=== PATIENT | female | born 1980 | race Caucasian/White ===

== ENCOUNTER 2019-02-24 01:32 | Emergency (ER) | payer OTHER ==
[2019-02-24] MEDS ORDERED: predniSONE 20 MG TAB PO STA (02:00)
[2019-02-24] MEDS ORDERED: diphenhydrAMINE 50 MG CAP PO STA (02:00)
[2019-02-24] MEDS ORDERED: FAMOTIDINE 20 MG TAB PO STA (02:00)
--- NOTE | 2019-02-24 02:05 | ED ---
Allergic Reaction HPI - General Chief complaint: Allergic Reaction Stated complaint: Allergic reaction to medication Time Seen by Provider: 02/24/19 01:50 Source: patient Mode of arrival: ambulatory Limitations: no limitations - History of Present Illness MD Complaint: allergic reaction, hives -: hour(s) Exposure: medication Symptoms: rash, itching, hoarseness Severity: moderate Treatment Prior to Arrival: none Previous Allergy History: none - Related Data Home Medications Medication Instructions Recorded Confirmed Lisinopril [Prinivil] 20 mg PO DAILY 02/16/15 04/29/15 metFORMIN HCL [metFORMIN HCL ER] 1,000 mg PO BID 02/16/15 04/29/15 Aspirin EC [Ecotrin] 81 mg PO DAILY 04/29/15 04/29/15 Previous Rx's Medication Instructions Recorded Hydrochlorothiazide [Hydrodiuril] 12.5 mg PO DAILY #90 cap 02/16/15 Famotidine [Pepcid] 20 mg PO BID #14 tablet 02/24/19 Nitrofurantoin Monohyd/M-Cryst 100 mg PO Q12HR #6 cap 02/24/19 [Macrobid] predniSONE 20 mg PO BID #8 tab 02/24/19 Allergies Allergy/AdvReac Type Severity Reaction Status Date / Time No Known Allergies Allergy Verified 04/29/15 18:46 Review of Systems ROS Statement: Those systems with pertinent positive or pertinent negative responses have been documented in the HPI. ROS Other: All systems not noted in ROS Statement are negative. Constitutional: Denies: fever, chills Respiratory: Denies: cough, dyspnea, wheezes Cardiovascular: Denies: chest pain, palpitations Gastrointestinal: Denies: abdominal pain, nausea, vomiting, diarrhea Skin: Reports: rash Neurological: Denies: headache Past Medical History Past Medical History: Diabetes Mellitus, Hypertension History of Any Multi-Drug Resistant Organisms: None Reported Past Surgical History: No Surgical Hx Reported Past Psychological History: No Psychological Hx Reported Smoking Status: Never smoker Past Alcohol Use History: Occasional Past Drug Use History: None Reported General Exam Limitations: no limitations General appearance: alert, in no apparent distress Head exam: Present: atraumatic, normocephalic Eye exam: Present: normal appearance, PERRL, EOMI. Absent: scleral icterus, conjunctival injection ENT exam: Present: normal oropharynx Neck exam: Present: normal inspection Respiratory exam: Present: normal lung sounds bilaterally. Absent: respiratory distress, wheezes, rales, rhonchi, stridor Cardiovascular Exam: Present: normal rhythm, tachycardia, systolic murmur. Absent: diastolic murmur, rubs, gallop GI/Abdominal exam: Present: soft. Absent: distended, tenderness, guarding, rebound, rigid, mass Extremities exam: Present: normal inspection, normal capillary refill. Absent: pedal edema, calf tenderness Back exam: Absent: CVA tenderness (R), CVA tenderness (L) Neurological exam: Present: alert Skin exam: Present: warm, dry, intact, urticaria Course Vital Signs 02/24/19 02/24/19 02/24/19 01:43 02:20 02:56 Temperature 98.0 F 98.7 F Pulse Rate 120 H 76 Respiratory 16 18 Rate Blood Pressure 117/74 123/66 O2 Sat by Pulse 100 100 Oximetry Medical Decision Making - Lab Data Lab Results 02/24/19 Range/Units 02:18 Urine Color Dark Brown Urine Appearance Clear (Clear) Urine pH 6.5 (5.0-8.0) Ur Specific [place] 1.003 (1.001-1.035) Urine Protein Negative (Negative) Urine Glucose (UA) Negative (Negative) Urine Ketones Negative (Negative) Urine Blood Negative (Negative) Urine Nitrite Positive H (Negative) Urine Bilirubin 1+ H (Negative) Urine Urobilinogen 3.0 (<2.0) mg/dL Ur Leukocyte Esterase Small H (Negative) Urine RBC <1 (0-5) /hpf Urine WBC 11 H (0-5) /hpf Ur Squamous Epith Cells <1 (0-4) /hpf Urine Mucus Rare H (None) /hpf Disposition Clinical Impression: Allergic reaction, Urinary tract infection Disposition: HOME SELF-CARE Condition: Good Instructions (If sedation given, give patient instructions): General Allergic Reaction (ED) Prescriptions: Nitrofurantoin Monohyd/M-Cryst [Macrobid] 100 mg PO Q12HR #6 cap Famotidine [Pepcid] 20 mg PO BID #14 tablet predniSONE 20 mg PO BID #8 tab Is patient prescribed a controlled substance at d/c from ED?: No Referrals: Nonstaff,Physician [Primary Care Provider] - 1-2 days
[2019-02-24 02:20] VITALS: TEMP 98.7
[2019-02-24 02:33] LABS: Appearance,Urine Clear (Clear); Bilirubin,Urine 1+ (Negative); Blood,Urine Negative (Negative); Color,Urine Dark Brown; Glucose,Urine (UA) Negative (Negative); Ketones,Urine Negative (Negative); Leukocyte Esterase,Urine Small (Negative); Mucus,Urine Rare /hpf; Nitrite,Urine Positive (Negative); PH, Urine 6.5 (5.0-8.0); Protein,Urine Negative (Negative); RBC,Urine <1 /hpf (0-5); Specific Gravity,Urine 1.003 (1.001-1.035); Squamous Epithelial Cell,Urine <1 /hpf (0-4); WBC,Urine 11 /hpf (0-5)
[2019-02-24 02:58] VITALS: RESP 18
[2019-02-24] MEDS ORDERED: NITROFURANTOIN MONOHYD/M-CRYST 100 MG CAP PO STA (03:08)
[2019-02-24 04:30] VITALS: BP 136/86; PULSE 97
== END 2019-02-24 04:30 | disposition home or self-care (01) ==
LOC: EC 01:32
DX: R21 Rash and other nonspecific skin eruption (principal); R49.0 Dysphonia; L29.9 Pruritus, unspecified; T50.905A Adverse effect of unspecified drugs, medicaments and biological substances, initial encounter; N39.0 Urinary tract infection, site not specified; E11.9 Type 2 diabetes mellitus without complications; I10 Essential (primary) hypertension; Z79.84 Long term (current) use of oral hypoglycemic drugs; Z79.82 Long term (current) use of aspirin; Z79.899 Other long term (current) drug therapy
CPT/HCPCS: 81001; 99283

== ENCOUNTER → 2020-03-15 | Outpatient (CLI) | payer OTHER ==
--- NOTE | 2020-03-15 09:57 | US ---
EXAMINATION TYPE: US abdomen complete DATE OF EXAM: 03/15/2020 COMPARISON: NONE CLINICAL HISTORY: R10.13 epigastric pain. Very difficult and limited exam due to overlying bowel gas. Reflux EXAM MEASUREMENTS: Liver Length: 15.9 cm Gallbladder Wall: 0.2 cm CBD: 0.5 cm Spleen: 11.0 cm Right Kidney: 11.6 x 5.21 x 4.9 cm Left Kidney: 12.0 x 5.1 x 4.4 cm Pancreas: Obscured by bowel gas Liver: Echogenic, coarse Gallbladder: Packed with stones, MEGAN sign visualized Evidence for sonographic Hernandez's sign: No CBD: wnl as visualized, distal portion obscured by bowel gas Spleen: wnl Right Kidney: No hydronephrosis or masses seen Left Kidney: No hydronephrosis or masses seen Upper IVC: wnl Abd Aorta: Obscured by overlying bowel gas IMPRESSION: 1. Liver is somewhat echogenic and coarsened in pattern correlate for hepatic steatosis or hepatocell ular disease. 2. Findings are suggestive of a collapsed gallbladder with wall echo sign suggestive of a decompresse d gallbladder with numerous gallstones.
== END | disposition home or self-care (01) ==
LOC: RADUSWWP 08:21
PROVIDERS: ATTEND Family Medicine
DX: R93.2 Abnormal findings on diagnostic imaging of liver and biliary tract (principal); R10.13 Epigastric pain
CPT/HCPCS: 76700